=== PATIENT | female | born 1990 | race Caucasian/White ===

== ENCOUNTER 2018-04-19 16:18 | Emergency (ER) | payer BC ==
[~2018-04-19] VITALS: Ht 167.6 cm; Wt 78.0 kg
[2018-04-19 17:20] VITALS: Ht 167.6 cm; Wt 78.0 kg
[2018-04-19 19:22] LABS: BASOPHIL % 0.3 % (0-2); PLATELET COUNT 299 x10^3mcL (130-400); RED CELL DISTRIBUTION WIDTH 12.3 % (11.5-14.5)
[2018-04-19 21:01] VITALS: BP 120/77
== END 2018-04-19 21:01 | disposition home or self-care (01) ==
LOC: ED 16:18
PROVIDERS: Emergency Medicine
DX: O20.0 Threatened abortion (principal); Z90.49 Acquired absence of other specified parts of digestive tract; Z88.2 Allergy status to sulfonamides; Z3A.01 Less than 8 weeks gestation of pregnancy
CPT/HCPCS: 36415